=== PATIENT | male | born 1975 | race Caucasian/White ===

== ENCOUNTER → 2017-09-29 11:01 | Outpatient (CLI) | payer BC, SELFPAY ==
--- NOTE | 2017-09-29 16:49 | STRESSREP ---
Stress Test Report Treadmill EKG report: Resting EKG: Normal sinus rhythm with early repolarization abnormality which is a nonspecific finding given the patient's age. No previous myocardial infarction noted. Treadmill EKG the patient exercised according to a Armando protocol for 11 minutes and 01 seconds achieving a maximum workload of 13.4 METS. Resting heart rate was initially 74 beats a minute and susie to maximum 1 4 2 bpm which represents 80% of the maximal age-predicted heart rate. Resting blood pressure was 110/68 and susie to maximum 152/71. Test terminated due to completion of protocol. During exercise the patient's heart rate increased as expected. Patient had no dynamic EKG changes to suggest ischemia. No arrhythmias noted. Conclusions: Normal submaximal treadmill EKG. Negative for ischemia by EKG criteria. No anginal symptoms noted. No arrhythmias noted. Appropriate blood pressure response to exercise. Average exercise capacity for age. Patient tolerated procedure well. Decreased sensitivity due to failure to reach target heart rate. Consider alternative mode of testing with imaging component if coronary ischemia is strongly suspected.
== END ==
PROVIDERS: Visit Provider Internal Medicine Cardiovascular Disease
DX: R07.9 Chest pain, unspecified (principal); I25.10 Atherosclerotic heart disease of native coronary artery without angina pectoris
CPT/HCPCS: 93017